=== PATIENT | female | born 1935 | race African-American/Black ===

== ENCOUNTER → 2023-12-05 13:40 | Outpatient (REF) | payer OTHER, SELFPAY | LOC: HWWDC 13:40 | PROVIDERS: ATTENDING PHYSICIAN Family Medicine | DX: Z12.31 Encounter for screening mammogram for malignant neoplasm of breast (principal) | CPT/HCPCS: 77063; 77067 ==

== ENCOUNTER → 2025-01-13 12:44 | Outpatient (REF) | payer OTHER, SELFPAY | LOC: HWWDC 12:44 | PROVIDERS: ATTENDING PHYSICIAN Family Medicine | DX: Z12.31 Encounter for screening mammogram for malignant neoplasm of breast (principal) | CPT/HCPCS: 77063; 77067 ==